=== PATIENT | male | born 1960 | race Caucasian/White ===

== ENCOUNTER → 2018-05-09 | Outpatient (REF) | payer BC ==
[2018-05-09 13:01] LABS: BASO % 0.5 % (0.0-1.0); EOS # 0.1 10^3/uL (0.0-0.50); EOS % 2.2 % (0.0-3.0); IMMATURE GRANULOCYTE % 0.3 % (0-3.0); LYMPH # 1.3 10^3/uL (1.5-4.5); LYMPH % 22.2 % (24.0-44.0); MEAN CORPUSCULAR HEMOGLOBIN 29.6 pg (27.0-33.0); MONO # 0.5 10^3/uL (0.0-0.8); MONO % 8.2 % (0.0-5.0); NEUTROPHILS # 3.9 10^3/uL (1.8-7.7); NEUTROPHILS % 66.6 % (36.0-66.0); PLATELET COUNT, AUTOMATED 189 10^3/uL (150-450); RED CELL DISTRIBUTION WIDTH 12.4 % (11.5-14.5); WHITE BLOOD COUNT 5.8 10^3/uL (4.0-10.0)
[2018-05-09 13:55] LABS: ALBUMIN/GLOBULIN RATIO 1.33 (1.00-1.93); ALKALINE PHOSPHATASE 68 U/L (45-117); ALT/SGPT 49 U/L (12-78); ANION GAP 11 MEQ/L (8-16); AST/SGOT 25 U/L (7-37); BILIRUBIN,TOTAL 0.7 MG/DL (0.2-1.0); BLOOD UREA NITROGEN 16 MG/DL (7-18); CARBON DIOXIDE LEVEL 22 MEQ/L (21-32); CHLORIDE LEVEL 109 MEQ/L (98-107); CHOLESTEROL LEVEL 213 MG/DL (<200); CHOLESTEROL RISK RATIO 3.736 (<5); CREATININE FOR GFR 0.76 MG/DL (0.70-1.30); GLOMERULAR FILTRATION RATE > 60.0 (>49); GLUCOSE, FASTING 89 MG/DL (70-100); HDL CHOLESTEROL 57 MG/DL (>40); LDL CHOLESTEROL 138.8 MG/DL (<100); NON-HDL-C 156 MG/DL; POTASSIUM SERUM 4.3 MEQ/L (3.5-5.1); PSA SCREENING 0.55 NG/ML (< 4.0); SODIUM LEVEL 142 MEQ/L (136-145); TRIGLYCERIDES LEVEL 86 MG/DL (<150)
[2018-05-09 16:19] LABS: ESTIMATED AVERAGE GLUCOSE 103 MG/DL (60-110); HEMOGLOBIN A1c 5.2 %
== END ==
LOC: M SFHCPLAZ 09:11
DX: E78.5 Hyperlipidemia, unspecified (principal); Z12.5 Encounter for screening for malignant neoplasm of prostate
CPT/HCPCS: 84443

== ENCOUNTER → 2019-05-05 | Outpatient (REF) | payer BC ==
[2019-05-05 10:08] LABS: HEMOGLOBIN A1c 5.6 %
[2019-05-05 11:06] LABS: ALBUMIN 3.8 GM/DL (3.2-5.2); ALT/SGPT 40 U/L (12-78); BILIRUBIN,TOTAL 0.4 MG/DL (0.2-1.0); BLOOD UREA NITROGEN 16 MG/DL (7-18); CALCIUM LEVEL 8.8 MG/DL (8.8-10.2); CARBON DIOXIDE LEVEL 27 MEQ/L (21-32); CHLORIDE LEVEL 109 MEQ/L (98-107); CHOLESTEROL LEVEL 214 MG/DL (<200); CHOLESTEROL RISK RATIO 4.196 (<5); CREATININE FOR GFR 0.93 MG/DL (0.70-1.30); GLOMERULAR FILTRATION RATE > 60.0 (>49); GLUCOSE, FASTING 84 MG/DL (70-100); HDL CHOLESTEROL 51 MG/DL (>40); LDL CHOLESTEROL 148 MG/DL (<100); NON-HDL-C 163 MG/DL; POTASSIUM SERUM 4.3 MEQ/L (3.5-5.1); PTH INTACT 42.4 PG/ML (18.5-88.0); SODIUM LEVEL 142 MEQ/L (136-145); TOTAL PROTEIN 6.9 GM/DL (6.4-8.2); TRIGLYCERIDES LEVEL 75 MG/DL (<150)
[2019-05-05 11:53] LABS: TOTAL 25(OH) VITAMIN D 26.8 NG/ML (30.0-100.0)
== END ==
LOC: M SFHCPLAZ 08:16
PROVIDERS: ATTEND Family Medicine
DX: Z12.5 Encounter for screening for malignant neoplasm of prostate (principal); E78.5 Hyperlipidemia, unspecified; E66.3 Overweight; E55.9 Vitamin D deficiency, unspecified
CPT/HCPCS: 36415; 80053; 80061; 82306; 83036; 83970; 86140; G0103

== ENCOUNTER → 2020-05-03 | Outpatient (REF) | payer BC ==
[2020-05-03 10:07] LABS: ALBUMIN 3.9 GM/DL (3.2-5.2); ALT/SGPT 47 U/L (12-78); BILIRUBIN,TOTAL 0.5 MG/DL (0.2-1.0); BLOOD UREA NITROGEN 18 MG/DL (7-18); C REACTIVE PROTEIN QUANTITATIV < 0.30 MG/DL (0.00-0.30); CALCIUM LEVEL 8.7 MG/DL (8.8-10.2); CARBON DIOXIDE LEVEL 27 MEQ/L (21-32); CHLORIDE LEVEL 111 MEQ/L (98-107); CHOLESTEROL LEVEL 235 MG/DL (<200); CHOLESTEROL RISK RATIO 4.196 (<5); CREATININE FOR GFR 0.96 MG/DL (0.70-1.30); GLOMERULAR FILTRATION RATE > 60.0 (>49); GLUCOSE, FASTING 92 MG/DL (70-100); HDL CHOLESTEROL 56 MG/DL (>40); LDL CHOLESTEROL 168 MG/DL (<100); NON-HDL-C 179 MG/DL; POTASSIUM SERUM 4.2 MEQ/L (3.5-5.1); SODIUM LEVEL 144 MEQ/L (136-145); TOTAL PROTEIN 7.1 GM/DL (6.4-8.2); TRIGLYCERIDES LEVEL 56 MG/DL (<150)
[2020-05-03 13:02] LABS: HEMOGLOBIN A1c 5.4 %
== END ==
LOC: M PLALAB 08:00
PROVIDERS: ATTEND Family Medicine
DX: E66.3 Overweight (principal); E78.5 Hyperlipidemia, unspecified; Z12.5 Encounter for screening for malignant neoplasm of prostate
CPT/HCPCS: 36415; 80053; 80061; 83036; 83525; 86140; G0103

== ENCOUNTER → 2020-06-11 | Outpatient (CLI) | payer SELFPAY | LOC: M LABSMTC 09:53 | PROVIDERS: ATTEND Pediatrics | DX: Z20.828 Contact with and (suspected) exposure to other viral communicable diseases (principal); Z11.59 Encounter for screening for other viral diseases ==

== ENCOUNTER 2020-11-13 06:35 | Emergency (ER) | payer BC, SELFPAY ==
[2020-11-13] MEDS ORDERED: ONDANSETRON 4MG/2ML VIAL IV ONE (07:30)
[2020-11-13] MEDS ORDERED: ALBUTEROL 90 MCG/ACT 8GM HFA INHALER INH ONE (07:30)
[2020-11-13] MEDS ORDERED: ACETAMINOPHEN 325 MG TAB PO ONE (07:30)
[2020-11-13] MEDS ORDERED: NS 500 ML IV ONE (07:30)
--- NOTE | 2020-11-13 08:11 | REP ---
INDICATION: Coronavirus workup COMPARISON: None. TECHNIQUE: Portable AP view of the chest FINDINGS: Mediastinum and cardiac silhouette are grossly normal for portable technique. Subtle left basilar infiltrate/atelectasis is suspected. No obvious effusion. No pneumothorax. Skeletal structures intact. IMPRESSION: Subtle left basilar infiltrate suggested. <Electronically signed by Gael Del Rio > 11/13/20 [id number]
[2020-11-13 08:55] LABS: BASO % 0.3 % (0.0-1.0); HEMATOCRIT 45.5 % (42.0-52.0); LYMPH # 0.5 10^3/uL (1.5-5.0); LYMPH % 13.6 % (24.0-44.0); MEAN CORPUSCULAR HEMOGLOBIN 28.4 pg (27.0-33.0); MONO # 0.3 10^3/uL (0.0-0.8); MONO % 8.4 % (0.0-5.0); NEUTROPHILS # 2.6 10^3/uL (1.5-8.5); NEUTROPHILS % 77.4 % (36.0-66.0); RED BLOOD COUNT 5.29 10^6/uL (4.30-6.10); WHITE BLOOD COUNT 3.3 10^3/uL (4.0-10.0)
[2020-11-13 09:17] LABS: PARTIAL THROMBOPLASTIN TIME 30.2 SECONDS (24.2-38.5)
[2020-11-13 09:20] LABS: D-DIMER QUANT 474.08 ng/ml (<500)
[2020-11-13 09:22] LABS: C REACTIVE PROTEIN QUANTITATIV 2.04 MG/DL (0.00-0.30); CK-MB VALUE MASS < 1.0 NG/ML (<3.6); CPK CREATINE PHOSPHOKINASE 75 U/L (39-308); FERRITIN 507 NG/ML (26-388); INR 0.99; LDH LACTATE DEHYDROGENASE 262 U/L (87-241); MAGNESIUM LEVEL 2.1 MG/DL (1.8-2.4); MB/CK RELATIVE INDEX 1.33 (< OR =4); PROTHROMBIN TIME 13.3 SECONDS (12.5-14.3); TROPONIN I < 0.02 NG/ML (< 0.10)
[2020-11-13 09:23] LABS: PLATELET COUNT, AUTOMATED 89 10^3/uL (150-450)
[2020-11-13] MEDS ORDERED: PHEN-815 PO (09:47)
[2020-11-13] MEDS ORDERED: ROSU20TA5 PO (09:47)
[2020-11-13] MEDS ORDERED: ONDA4TAB6 PO (10:40)
[2020-11-13] MEDS ORDERED: DOXY100C37 PO (10:57)
[2020-11-13 11:39] VITALS: BP 122/86
--- NOTE | 2020-11-15 07:27 | ECGEPIP ---
[facility] - ED Test Date: 2020-11-13 Pat Name: LUCIANA KEITH Department: Room: - Gender: Male Fashion Intern: : 1960 Requested By: MONICA TAVERAS PA-C. Order Number: [id number] Reading MD: Linda Dodd Measurements Intervals [place] Rate: 95 P: 12 TN: 194 QRS: -15 QRSD: 93 T: 5 QT: 314 QTc: 395 Interpretive Statements SINUS RHYTHM LOW QRS VOLTAGE IN PRECORDIAL LEADS PATTERN CONSISTENT WITH PULMONARY DISEASE INFERIOR MYOCARDIAL INFARCTION, PROBABLY OLD No prior Electronically Signed on 11-15-2020 7:27:27 EST by Linda Dodd
== END 2020-11-13 11:43 | disposition home or self-care (01) ==
LOC: M ED 06:35
DX: U07.1 COVID-19 (principal); J06.9 Acute upper respiratory infection, unspecified; B34.9 Viral infection, unspecified; R91.8 Other nonspecific abnormal finding of lung field; D69.49 Other primary thrombocytopenia; E78.5 Hyperlipidemia, unspecified; K21.9 Gastro-esophageal reflux disease without esophagitis; Z87.891 Personal history of nicotine dependence; Z79.899 Other long term (current) drug therapy
CPT/HCPCS: 71045; 80047; 82550; 82553; 82728; 83605; 83615; 83735; 84484; 85025; 85049; 85055; 85379; 85384; 85610; 85730; 86140; 87040; 93005; 93041; 94640; 94760; 96361; 96374; 99285; J2405

== ENCOUNTER 2020-11-15 18:42 | Inpatient (IN) | payer BC ==
[~2020-11-15] VITALS: Ht 177.8 cm; Wt 90.9 kg
[~2020-11-15 18:42] MED LIST: DOXY100C37 PO; ONDA4TAB6 PO; PHEN-815 PO; ROSU20TA5 PO
[2020-11-15] MEDS ORDERED: NS 1,000 ML IV ONE (19:15)
[2020-11-15] MEDS ORDERED: ONDANSETRON 4MG/2ML VIAL IV ONE ×2 (19:45→20:00)
[2020-11-15] MEDS: COMBIVENT RESPIMAT 100-20MCG INHALER 4GM INH SCH ×5 (19:45→20:47)
[2020-11-15] MEDS ORDERED: ONDANSETRON 4MG/2ML VIAL As Ordered ONE (19:47)
[2020-11-15 19:53] LABS: VENOUS BASE EXCESS 1.4 (-2.0-2.0); VENOUS HCO3 25.7 MEQ/L (23.0-27.0); VENOUS O2 SATURATION 61.5 % (60.0-80.0); VENOUS PARTIAL PRESSURE CO2 39.8 mmHg (38.0-50.0); VENOUS PH 7.428 UNITS (7.330-7.430); VENOUS STANDARD HCO3 24.7 MEQ/L; VENOUS TOTAL CO2 26.9 MEQ/L (24.0-28.0); VENOUS VENT MODE AIR
[2020-11-15 19:55] LABS: BASO % 0.2 % (0.0-1.0); HEMATOCRIT 46.2 % (42.0-52.0); HEMOGLOBIN 15.2 g/dl (13.5-17.5); LYMPH # 0.5 10^3/uL (1.5-5.0); LYMPH % 10.1 % (24.0-44.0); MEAN CORPUSCULAR HEMOGLOBIN 28.3 pg (27.0-33.0); MEAN CORPUSCULAR HGB CONC 32.9 g/dl (32.0-36.5); MONO # 0.3 10^3/uL (0.0-0.8); MONO % 6.3 % (0.0-5.0); NEUTROPHILS # 3.7 10^3/uL (1.5-8.5); NEUTROPHILS % 82.7 % (36.0-66.0); PLATELET COUNT, AUTOMATED 104 10^3/uL (150-450); RED BLOOD COUNT 5.37 10^6/uL (4.30-6.10); WHITE BLOOD COUNT 4.5 10^3/uL (4.0-10.0)
[2020-11-15 19:56] LABS: INR 0.99; PROTHROMBIN TIME 13.3 SECONDS (12.5-14.3)
[2020-11-15 19:57] LABS: PARTIAL THROMBOPLASTIN TIME 33.2 SECONDS (24.2-38.5)
[2020-11-15 19:59] LABS: D-DIMER QUANT 667.18 ng/ml (<500)
[2020-11-15] MEDS ORDERED: NS 1,000 ML IV SCH (20:00)
[2020-11-15 20:13] LABS: ALBUMIN 3.2 GM/DL (3.2-5.2); ALT/SGPT 46 U/L (12-78); BILIRUBIN,TOTAL 0.7 MG/DL (0.2-1.0); BLOOD UREA NITROGEN 17 MG/DL (7-18); C REACTIVE PROTEIN QUANTITATIV 3.95 MG/DL (0.00-0.30); CALCIUM LEVEL 8.1 MG/DL (8.8-10.2); CARBON DIOXIDE LEVEL 24 MEQ/L (21-32); CHLORIDE LEVEL 103 MEQ/L (98-107); CK-MB VALUE MASS < 1.0 NG/ML (<3.6); CPK CREATINE PHOSPHOKINASE 120 U/L (39-308); CREATININE FOR GFR 0.88 MG/DL (0.70-1.30); FERRITIN 952 NG/ML (26-388); GLOMERULAR FILTRATION RATE > 60.0 (>49); GLUCOSE, FASTING 90 MG/DL (70-100); LDH LACTATE DEHYDROGENASE 387 U/L (87-241); MB/CK RELATIVE INDEX 0.83 (< OR =4); POTASSIUM SERUM 3.5 MEQ/L (3.5-5.1); SODIUM LEVEL 136 MEQ/L (136-145); TROPONIN I < 0.02 NG/ML (< 0.10)
[2020-11-15] MEDS ORDERED: dexameTHASONE 20MG/5ML VIAL (J1100 PER 1MG) As Ordered ONE (20:13)
[2020-11-15] MEDS ORDERED: ISOVUE-370 76% 100ML VIAL As Ordered ONE (20:51)
--- NOTE | 2020-11-15 20:51 | REPVR ---
PROCEDURE INFORMATION: Exam: XR Chest, 1 View Exam date and time: 11/15/2020 7:20 PM Age: 60 years old Clinical indication: Device placement; Other: Sepsis; Additional info: Sepsis/shock TECHNIQUE: Imaging protocol: XR of the chest Views: 1 view. COMPARISON: CR PORTABLE CHEST X-RAY 11/13/2020 7:38 AM FINDINGS: Lungs: Slightly increased bibasilar infiltrate or atelectasis since the prior study. Pleural space: Question of minimal left pleural effusion. Heart/Mediastinum: Unremarkable. No cardiomegaly. Bones/joints: Unremarkable. Soft tissues: There are moderately generous overlying soft tissues. Other findings: Decreased inflation since the prior study. IMPRESSION: 1. Slightly increased bibasilar infiltrates or atelectasis since 11/13/2020. 2. Question of minimal left pleural effusion which may have been present on the prior study. Electronically signed by: Madhav Jim On 11/15/2020 20:51:04 PM
[2020-11-15] MEDS ORDERED: cefTRIAXone SOD 2 GM in D5W MINI-BAG PLUS 50 ML IV ONE (21:30)
[2020-11-15] MEDS ORDERED: ACETAMINOPHEN 500 MG TAB PO ONE (21:30)
--- NOTE | 2020-11-15 21:32 | REPVR ---
PROCEDURE INFORMATION: Exam: CT Angiography Chest With Contrast Exam date and time: 11/15/2020 9:05 PM Age: 60 years old Clinical indication: Shortness of breath; Additional info: Sob/covid/ R/O pe TECHNIQUE: Imaging protocol: Computed tomographic angiography of the chest with intravenous contrast. 3D rendering (Not supervised by radiologist): MIP and/or 3D reconstructed images were created by the technologist. Radiation optimization: All CT scans at this facility use at least one of these dose optimization techniques: automated exposure control; mA and/or kV adjustment per patient size (includes targeted exams where dose is matched to clinical indication); or iterative reconstruction. Contrast material: ISOVUE 370; Contrast volume: 75 ml; Contrast route: INTRAVENOUS (IV); COMPARISON: CR PORTABLE CHEST X-RAY 11/15/2020 8:00 PM FINDINGS: Pulmonary arteries: The main pulmonary artery measures 28 mm. No pulmonary embolism is identified. Aorta: The ascending thoracic aorta measures 29 mm. Veins: The liver attenuation is 39 Hounsfield units and the spleen is 98 Hounsfield units as acquired and early portal venous phase. Lungs: Mild scattered bilateral ground-glass pulmonary infiltrates with minimal fibro-atelectatic change, greatest in the bases. Pleural space: Unremarkable. No pneumothorax. No pleural effusion. Heart: Unremarkable. No cardiomegaly. No pericardial effusion. Lymph nodes: Unremarkable. No enlarged lymph nodes. Pancreas: Lobular low-attenuation area in the pancreatic neck measuring approximately 19 x 20 x 14 mm which may reflect a collection of cysts or complex cyst although a poorly enhancing solid nodule is not excluded. Bones/joints: Unremarkable. No acute fracture. Soft tissues: Unremarkable. IMPRESSION: 1. Mild scattered bilateral ground-glass pulmonary infiltrates with minimal fibro-atelectatic change which is greatest in the bases consistent with pneumonia. 2. Probable fatty infiltration of the liver. 3. Lobular low-attenuation area in the pancreatic neck which may reflect a complex cyst or collection of cysts although a poorly enhancing pancreatic solid nodule is not excluded measuring 19 x 20 x 14 mm. 4. Otherwise negative CTA chest. No pulmonary embolism is identified. Electronically signed by: Madhav Jim On 11/15/2020 21:32:17 PM
[2020-11-15] MEDS ORDERED: DOXY100C37 PO (21:57)
[2020-11-15] MEDS ORDERED: ONDA4TAB6 PO (21:59)
[2020-11-15] MEDS ORDERED: NS 1,710 ML in IV 1 EA IV ONE (22:00)
[2020-11-15] MEDS ORDERED: ACET-683 PO (22:06)
[2020-11-15] MEDS ORDERED: MAALOX 30 ML SUSP *UDC PO PRN (22:45)
[2020-11-15] MEDS ORDERED: MOM 30ML SUSPENSION UDC PO PRN (22:45)
[2020-11-15] MEDS ORDERED: ACETAMINOPHEN TAB 650MG DOSE (2X325MG) PO PRN (22:45)
[2020-11-15] MEDS: AZITHROMYCIN INJ 500 MG, VIAL MATE ADAPTER 1 EACH in D5W 250 ML IV SCH (23:16)
--- NOTE | 2020-11-15 23:39 | HPEPDOC ---
[facility] Medical History & Physical Date of Admission Nov 15, 2020 Date of Service: Nov 15, 2020 Primary Care Physician: Satya Arce M.D. Attending Physician: MIMI SNYDER MD History and Physical TIME OF SERVICE: 1100pm CHIEF COMPLAINT: URI symptoms HISTORY OF PRESENT ILLNESS: This 60 yr old M was diagnosed with COVID 19 and LLL PNA on Nov 05 and started on doxycycline. Today he reports feeling more ill and is c/o of fever (100F), chills, and dyspnea. He denies having abdominal pain, voming or diarrhea today. A few days ago he felt nauseous. REVIEW OF SYSTEMS: see HPI PAST MEDICAL/ SURGICAL HISTORY: NAFLD DLP Chronic back pain SOCIAL HISTORY: Former smoker FAMILY HISTORY: n/a ALLERGIES: Please see below. HOME MEDICATIONS: Please see below. PHYSICAL EXAMINATION: Vital Signs Date Time Temp Pulse Resp B/P (MAP) Pulse Ox O2 Delivery O2 Flow Rate FiO2 11/15/20 18:43 98.3 106 24 148/72 (97) 96 Room Air GENERAL APPEARANCE: appears toxic HEENT: EOMI CARDIOVASCULAR: tachycardic / NMRG / no LE edema LUNGS: tachypneic / coughing / lungs are CTAB MUSCULOSKELETAL:NCAT / GIDEON x 4 INTEGUMENT: NEUROLOGICAL:CN 2-12 intact / speech not dysarthric PSYCHIATRIC: A&Ox 3 / able to understand and follow all commands LABORATORY DATA: 11/15/20 19:21 11/15/20 19:21: Immature Granulocyte % (Auto) 0.7, Neutrophils (%) (Auto) 82.7H, Lymphocytes (%) (Auto) 10.1L, Monocytes (%) (Auto) 6.3H, Eosinophils (%) (Auto) 0.0, Basophils (%) (Auto) 0.2, Neutrophils # (Auto) 3.7, Lymphocytes # (Auto) 0.5L, Monocytes # (Auto) 0.3, Eosinophils # (Auto) 0.0, Basophils # (Auto) 0.0, Nucleated Red Blood Cells % (auto) 0.0, Prothrombin Time 13.3, Prothromb Time International Ratio 0.99, Activated Partial Thromboplast Time 33.2, D-Dimer, Quantitative 667.18H, Blood Gas Bicarbonate Standard 24.7, Venous Blood pH 7.428, Venous Blood Partial Pressure CO2 39.8, Venous Blood Partial Pressure O2 30.0, Venous Blood Total Carbon Dioxide 26.9, Venous Blood HCO3 25.7, Venous Blood Oxygen Saturation 61.5, Venous Blood Base Excess 1.4, Blood Gas Vent Mode AIR, Anion Gap 9, Glomerular Filtration Rate > 60.0, Lactic Acid Level 1.1, Calcium Level 8.1L, Ferritin 952H, Total Bilirubin 0.7, Aspartate Amino Transf (AST/SGOT) 50H, Alanine Aminotransferase (ALT/SGPT) 46, Alkaline Phosphatase 86, Lactate Dehydrogenase 387H, Total Creatine Kinase 120, Creatine Kinase MB < 1.0, Creatine Kinase MB Relative Index 0.83, Troponin I < 0.02, C-Reactive Protein, Quantitative 3.95H, Total Protein 7.0, Albumin 3.2, Albumin/Globulin Ratio 0.8 IMAGING: CTA chest IMPRESSION: 1. Mild scattered bilateral ground-glass pulmonary inf iltrates with minimal fibro-atelectatic change which is greatest in the bases consistent with pneumonia. 2. Probable fatty infiltration of the liver. 3. Lobular low-attenuation area in the pancreatic neck which may reflect a complex cyst or collection of cysts although a poorly enhancing pancreatic solid nodule is not excluded measuring 19 x 20 x 14 mm. 4. Otherwise negative CTA chest. No pulmonary embolism is identified. MICROBIOLOGY: Blood cx pending ASSESSMENT: is a 60 yr old w a hx of NAFLD, DLP and chronic back pain who was diagnosed with COVID 10 days ago and presented w c/o worsening, fevers and chills; he will be admitted for management of Sepsis 2/2 COVID 10 PNA. PLAN: 1. Sepsis SIRS criteria: Temp =101 / HR = 117 / RR= 26 Lactic acid <2 NEW2S Score = 6 points = medium risk Plan: admit to PCU / telemetry / abx to cover PNA / IVF /f/u blood cx, sputum culture / Acetaminophen PRN for fever / target MAP at of least 65 to 70 / f/u Is and Os with target UOP of at least 0.5 ml/kg/H / f/u FSBS w target serum glucose 140-180 while acutely ill 2. Post Viral Pneumonia ABG doesnt show hypoxemia PORT/PSI Score to predict risk of mortality in patient w CAP = 82 points = class 3 risk = 0.9 to 2.8% mortality Plan: continuous pulse ox & supplemental O2/ f/u sputum & blood culture, strep pneumo, mycoplasma and legionella / ceftriaxone, azithromycin and Vancomycin p ending MRSA results / IVF / Tessalon pearls / Acetaminophen PRN for fever 3. COVID-19 He has mostly URI symptoms The thrombocytopenia is likely 2/2 COVID Plan: continuous pulse ox / supplemental O2/ contact & air borne precautions / in 12 H f/u repeat plts (if low indicates bad prognosis), CRP (if high indicates bad prognosis), troponins (if elevated will need an echo to r/o cardiomyopathy), INR, BMP, fibrinogen, INR, D-dimer, PT, PTT (if patient has DIC indicates bad prognosis), ferritin, LDH, procalcitonin (if low will help us descalate abx), troponins / his D-dimer is <4000 therefore will order regular DVT dose of lovenox along with ASA,/ he is not hypoxemic therefore he is not a candidate for Remdesivir or steroids 4. Pancreatic Cyst He also had nausea a few days ago but denies having abdominal pain or pancreatitis in the past. There are case reports of COVID 19 presenting with pancreatitis, but I am not sure if the pancreatic cyst is related to COVID Plan: Since the cyst is >1.5cm in size will order MRCP to r/o malignancy 5. DLP Plan: rosuvastatin DVT Px Lovenox w ASA Dispo: home after more than 2 days Home Medications Scheduled Doxycycline Monohydrate (Doxycycline Monohydrate) 100 Mg Capsule, 100 MG PO Q12H started 11/13/20 x 7 days Rosuvastatin Calcium (Rosuvastatin Calcium) 20 Mg Tablet, 20 MG PO DAILY HAS NOT STARTED MEDICATION YET. Scheduled PRN Acetaminophen (Acetaminophen) 500 Mg Tablet, 1,000 MG PO Q6H PRN for PAIN / FEVER Ondansetron (Ondansetron Odt) 4 Mg Tab.rapdis, 4 MG PO Q6-8HP PRN for NAUSEA OR VOMITING Phenylephrine/Dm/Acetaminop/GG (Tylenol Cold-Flu Severe [place]) 1 Each Tablet, 2 EACH PO Q4H PRN for FEVER AND CONGESTION Allergies Coded Allergies: No Known Allergies (Unverified , 11/13/20) A-FIB/CHADSVASC A-FIB History Current/History of A-Fib/PAF?: No Current PO Anticoag Therapy: No LWANGA,MIMI MD Nov 15, 2020 23:38
[2020-11-15 23:52] LABS: TRIGLYCERIDES LEVEL 119 MG/DL (<150)
[2020-11-16 00:46] VITALS: BP 127/64
[2020-11-16] MEDS ORDERED: BENZONATATE 100 MG CAP PO ONE (03:30)
[2020-11-16 04:00] VITALS: BP 108/61
[2020-11-16 08:00] VITALS: BP 106/61
[2020-11-16] MEDS: ASPIRIN 81 MG ENTERIC TAB PO SCH (08:19)
[2020-11-16] MEDS: ENOXAPARIN 40MG/0.4ML SYRINGE (J1650 PER 10MG) SC SCH ×2 (08:20→10:30)
[2020-11-16] MEDS: ROSUVASTATIN 10 MG TAB (CRESTOR) PO SCH (08:20)
[2020-11-16] MEDS ORDERED: guaiFENesin DM LIQ 10ML UD PO PRN (08:45)
--- NOTE | 2020-11-16 08:49 | IPNPDOC ---
Date Seen The patient was seen on 11/16/20. Progress Note SUBJECTIVE: Patient was seen and examined at the bedside chart has been reviewed. He complains of cough productive of white sputum and complains of drenching night sweats, dysgeusia and anosmia .No complaints of chest pain, pressure, nausea or vomiting. He does admit to dyspnea and exertion and has been noted to decrease to 92-93% on room air with exertion. Despite thrombocytopenia with platelets between 80,000 -100,000, patient denies any active bleeding such as gingival bleeding, bright red blood per rectum, melena, black tarry stools or coffee- ground emesis. OBJECTIVE PHYSICAL EXAMINATION: VITAL SIGNS: Please see below. GENERAL: No use of respiratory muscles. No pallor, no icterus, no jaundice HEENT: No JVD, thyromegaly. Moist mucous membranes. No tracheal deviation No carotid bruit. No stridor CARDIOVASCULAR: S1, S2, sinus rhythm RESPIRATORY: Diminished breath sounds with bilateral fine crepitations. No rales, no wheezing. , Air entry is equal bilaterally. No use of respiratory accessory muscles . No conversational dyspnea ABDOMINAL: Positive bowel sounds, soft, nontender, nondistended. No hepatosplenomegaly. No abdominal bruit. No CVA tenderness EXTREMITIES: No pitting edema bilateral lower extremities. Skin warm, dry, well perfused [place] in color LABORATORY DATA, IMAGING STUDIES, MICROBIOLOGY: Please see below. ASSESSMENT AND PLAN: Covid 19 positive -Patient has oxygen saturation of 92-93% on room air at rest and with ambulation -He will be started on Remdesevir for 5 days. , IV steroids -Keep oxygen saturation above 94% -Keep on contact and droplet isolation -On aspirin and Lovenox due to hypercoagulable state seen and Covid infection Bilateral bacterial pneumonia -Continue on IV ceftriaxone and azithromycin -Check sputum culture -Robitussin 10 ML by mouth every 4 as needed for cough -Keep oxygen saturation above 94% -Give supplemental oxygen if O2 sats ration is less than 94% -Continue droplet isolation precautions Thrombocytopenia -Due to Covid 19 -Continue on Lovenox injection. Despite platelets of 100,000 Due to increased risk of hypercoagulable state, DVT, PE -If patient's thrombocytopenia decreases by 50% from baseline of 80,000, , We will need to reconsider stopping anticoagulation -Hold Lovenox if patient have any signs of active bleeding, Or platelet count less than 10,000 due to risk of spontaneous bleeding VS, I&O, 24H, [place] Vital Signs/I&O Vital Signs Date Time Temp Pulse Resp B/P (MAP) Pulse Ox O2 Delivery O2 Flow Rate FiO2 11/16/20 08:00 97.9 78 18 106/61 (76) 93 Room Air I&O- Last 24 Hours up to 6 AM 11/16/20 06:00 Intake Total 3295 ml Output Total 775 ml Balance 2520 ml Laboratory Data 24H LABS Laboratory Tests 2 11/15/20 19:19: 11/15/20 19:21: Immature Granulocyte % (Auto) 0.7, Neutrophils (%) (Auto) 82.7H, Lymphocytes (%) (Auto) 10.1L, Monocytes (%) (Auto) 6.3H, Eosinophils (%) (Auto) 0.0, Basophils (%) (Auto) 0.2, Neutrophils # (Auto) 3.7, Lymphocytes # (Auto) 0.5L, Monocytes # (Auto) 0.3, Eosinophils # (Auto) 0.0, Basophils # (Auto) 0.0, Nucleated Red Blood Cells % (auto) 0.0, Prothrombin Time 13.3, Prothromb Time International Ratio 0.99, Activated Partial Thromboplast Time 33.2, D-Dimer, Quantitative 667.18H, Blood Gas Bicarbonate Standard 24.7, Venous Blood pH 7.428, Venous Blood Partial Pressure CO2 39.8, Venous Blood Partial Pressure O2 30.0, Venous Blood Total Carbon Dioxide 26.9, Venous Blood HCO3 25.7, Venous Blood Oxygen Saturation 61.5, Venous Blood Base Excess 1.4, Blood Gas Vent Mode AIR, Anion Gap 9, Glomerular Filtration Rate > 60.0, Lactic Acid Level 1.1, Calcium Level 8.1L, Ferritin 952H, Total Bilirubin 0.7, Aspartate Amino Transf (AST/SGOT) 50H, Alanine Aminotransferase (ALT/SGPT) 46, Alkaline Phosphatase 86, Lactate Dehydrogenase 387H, Total Creatine Kinase 120, Creatine Kinase MB < 1.0, Creati ne Kinase MB Relative Index 0.83, Troponin I < 0.02, C-Reactive Protein, Quantitative 3.95H, Total Protein 7.0, Albumin 3.2, Albumin/Globulin Ratio 0.8, Triglycerides Level 119 12/26/20 06:38: Bedside Glucose (Misc Panel) 116H CBC/BMP Laboratory Tests 11/15/20 19:21 Microbiology Microbiology 11/15/20 Blood Culture, Received Pending 11/15/20 Blood Culture, Received Pending THEODORA HERMOSILLO MD Nov 16, 2020 08:49
[2020-11-16 11:12] LABS: HEMATOCRIT 39.2 % (42.0-52.0); LYMPH # 0.3 10^3/uL (1.5-5.0); MEAN CORPUSCULAR HEMOGLOBIN 28.2 pg (27.0-33.0); MEAN CORPUSCULAR HGB CONC 32.9 g/dl (32.0-36.5); MEAN CORPUSCULAR VOLUME 85.8 fl (80.0-96.0); MONO # 0.2 10^3/uL (0.0-0.8); MONO % 4.7 % (0.0-5.0); NEUTROPHILS # 3.1 10^3/uL (1.5-8.5); PLATELET COUNT, AUTOMATED 113 10^3/uL (150-450); RED BLOOD COUNT 4.57 10^6/uL (4.30-6.10); WHITE BLOOD COUNT 3.7 10^3/uL (4.0-10.0)
[2020-11-16 11:27] LABS: HEMOGLOBIN 12.9 g/dl (13.5-17.5)
[2020-11-16 11:31] LABS: INR 0.95; PROTHROMBIN TIME 12.9 SECONDS (12.5-14.3)
[2020-11-16 11:32] LABS: PARTIAL THROMBOPLASTIN TIME 30.1 SECONDS (24.2-38.5)
[2020-11-16 11:35] LABS: D-DIMER QUANT 702.04 ng/ml (<500)
[2020-11-16 11:41] LABS: C REACTIVE PROTEIN QUANTITATIV 3.47 MG/DL (0.00-0.30); FERRITIN 917 NG/ML (26-388); LDH LACTATE DEHYDROGENASE 319 U/L (87-241); NT-PRO BNP 504 PG/ML (<125); TRIGLYCERIDES LEVEL 103 MG/DL (<150); TROPONIN I < 0.02 NG/ML (< 0.10)
[2020-11-16 12:00] VITALS: BP 127/69
[2020-11-16] MEDS ORDERED: SODIUM CHLORIDE 0.9% INJ 10 ML SYR IV ONE (12:00)
[2020-11-16] MEDS: BENZONATATE 100 MG CAP PO SCH ×2 (13:19→21:52)
[2020-11-16 16:00] VITALS: BP 126/71
--- NOTE | 2020-11-16 18:16 | ECGEPIP ---
[facility] - ED Test Date: 2020-11-15 Pat Name: LUCIANA KEITH Department: Room: [place] [address] Gender: Male Contact Center Assistant: : 1960 Requested By: SATINDER Maher Order Number: [id number] Reading MD: Linda Dodd Measurements Intervals [place] Rate: 104 P: 33 CA: 175 QRS: -14 QRSD: 96 T: 7 QT: 319 QTc: 420 Interpretive Statements SINUS TACHYCARDIA POSSIBLE ANTERIOR MYOCARDIAL INFARCTION, OF INDETERMINATE AGE INFERIOR MYOCARDIAL INFARCTION, PROBABLY OLD SIMILAR 11/13/20 Electronically Signed on 11-16-2020 18:15:28 EST by Linda Dodd
[2020-11-16 20:35] VITALS: BP 123/62
[2020-11-16] MEDS: cefTRIAXone SOD 1 GM in D5W MINI-BAG PLUS 50 ML IV SCH (21:52)
[2020-11-17] VITALS: BP 122/65
[2020-11-17] MEDS: AZITHROMYCIN INJ 500 MG, VIAL MATE ADAPTER 1 EACH in D5W 250 ML IV SCH ×2 (00:12→21:52)
[2020-11-17 04:00] VITALS: BP 127/67
[2020-11-17] MEDS: BENZONATATE 100 MG CAP PO SCH ×3 (05:02→21:01)
[2020-11-17 08:00] VITALS: BP 120/68
[2020-11-17] MEDS: ROSUVASTATIN 10 MG TAB (CRESTOR) PO SCH (09:00)
--- NOTE | 2020-11-17 09:16 | IPNPDOC ---
Date Seen The patient was seen on 11/17/20. Progress Note SUBJECTIVE: Patient complained of worsening shortness breath yesterday required oxygen for about 2 hours He continues to have productive cough of white thick sputum, without any fever or chills Patient complained of insomnia, difficult to sleep last night. He denies any chest pain, pressure, tightness, lightheadedness today No complains of gingival bleeding, bright red blood per rectum, melena, black tarry stools or coffee-ground emesis. Still complains of dysgeusia anosmia, decreased appetite and generalized weakness No night sweats last night OBJECTIVE PHYSICAL EXAMINATION: VITAL SIGNS: Please see below. GENERAL: No respiratory distress, speaks in full sentences. No nasal flaring HEENT: No JVD, thyromegaly. Moist mucous membranes. No tracheal deviation No carotid bruit. No stridor. No use of respiratory accessory muscle use. No abdominal retractions CARDIOVASCULAR: S1, S2, sinus rhythm RESPIRATORY: Diminished breath sounds with bilateral bibasilar crackles No rales, no wheezing. , Air entry is equal bilaterally. No use of respiratory accessory muscles . No conversational dyspnea ABDOMINAL: Positive bowel sounds, soft, nontender, nondistended. No hepatosplenomegaly. No abdominal bruit. No CVA tenderness EXTREMITIES: No pitting edema bilateral lower extremities. Skin warm, dry, well perfused [place] in color LABORATORY DATA, IMAGING STUDIES, MICROBIOLOGY: Please see below. ASSESSMENT AND PLAN: Covid 19 positive -Patient has oxygen saturation of 92-93% on room air at rest and with ambulation -on Remdesevir for 5 days, IV steroids -Supportive care with supplemental oxygen if needed -Keep oxygen saturation above 94% -Keep on contact and droplet isolation -On aspirin and Lovenox due to hypercoagulable state seen and Covid infection -Inflammatory markers are decreasing. -Continue to monitor CRP, sedimentation rate, d-dimer, fibrinogen, ferritin , LDH, liver function tests and cardiac markers, CBC with differential Bilateral bacterial pneumonia -Continue on IV ceftriaxone and azithromycin -Checked sputum culture -Robitussin 10 ML by mouth every 4 as needed for cough -Keep oxygen saturation above 94% -Give supplemental oxygen if O2 sats ration is less than 94% -Continue droplet isolation precautions -Blood cultures are negative from admission -Check urine Legionella antigen -Check urine streptococcal antigen Pancytopenia -Due to Covid 19 -Continue on Lovenox injection. Due to increased risk of hypercoagulable state, DVT, PE -If patient's thrombocytopenia decreases by 50% from baseline of 80,000, , We will need to reconsider stopping anticoagulation -Hold Lovenox if patient have any signs of active bleeding, Or platelet count less than 10,000 due to risk of spontaneous bleeding VS, I&O, 24H, Fishbone Vital Signs/I&O Vital Signs Date Time Temp Pulse Resp B/P (MAP) Pulse Ox O2 Delivery O2 Flow Rate FiO2 11/17/20 04:50 95 Room Air 11/17/20 04:00 99.7 76 18 127/67 (87) 2.0 I&O- Last 24 Hours up to 6 AM 11/17/20 06:00 Intake Total 1155 ml Output Total 1200 ml Balance -45 ml Laboratory Data 24H LABS Laboratory Tests 2 11/16/20 10:53: Immature Granulocyte % (Auto) 0.3, Neutrophils (%) (Auto) 86.0H, Lymphocytes (%) (Auto) 9.0L, Monocytes (%) (Auto) 4.7, Eosinophils (%) (Auto) 0.0, Basophils (%) (Auto) 0.0, Neutrophils # (Auto) 3.1, Lymphocytes # (Auto) 0.3L, Monocytes # (Auto) 0.2, Eosinophils # (Auto) 0.0, Basophils # (Auto) 0.0, Nucleated Red Blood Cells % (auto) 0.0, Prothrombin Time 12.9, Prothromb Time International Ratio 0.95, Activated Partial Thromboplast Time 30.1, Fibrinogen 387, D-Dimer, Quantitative 702.04H, Ferritin 917H, Lactate Dehydrogenase 319H, Troponin I < 0.02, C-Reactive Protein, Quantitative 3.47H, FA-Uoj-O-Type Natriuretic Peptide 504H, Triglycerides Level 103 11/16/20 12:31: Bedside Glucose (Misc Panel) 107 11/16/20 17:26: Bedside Glucose (Misc Panel) 101 11/16/20 23:18: Bedside Glucose (Misc Panel) 99 CBC/BMP Laboratory Tests 11/16/20 10:53 Microbiology Microbiology 11/15/20 Blood Culture - Preliminary, Resulted No growth after 24 hours . All specim... 11/15/20 Blood Culture - Preliminary, Resulted No growth after 24 hours . All specim... THEODORA HERMOSILLO MD Nov 17, 2020 09:11
[2020-11-17 09:21] LABS: BASO % 0.1 % (0.0-1.0); HEMATOCRIT 40.1 % (42.0-52.0); HEMOGLOBIN 13.2 g/dl (13.5-17.5); LYMPH # 0.7 10^3/uL (1.5-5.0); LYMPH % 9.3 % (24.0-44.0); MEAN CORPUSCULAR HEMOGLOBIN 28.6 pg (27.0-33.0); MEAN CORPUSCULAR HGB CONC 32.9 g/dl (32.0-36.5); MONO # 0.3 10^3/uL (0.0-0.8); MONO % 3.7 % (0.0-5.0); NEUTROPHILS # 6.8 10^3/uL (1.5-8.5); NEUTROPHILS % 86.3 % (36.0-66.0); PLATELET COUNT, AUTOMATED 144 10^3/uL (150-450); RED BLOOD COUNT 4.61 10^6/uL (4.30-6.10); WHITE BLOOD COUNT 7.9 10^3/uL (4.0-10.0)
[2020-11-17 09:42] LABS: ERYTHROCYTE SEDIMENTATION RATE 13 mm/hr (0-20)
[2020-11-17 09:49] LABS: ALBUMIN 2.6 GM/DL (3.2-5.2); ALT/SGPT 83 U/L (12-78); BILIRUBIN,TOTAL 0.4 MG/DL (0.2-1.0); BLOOD UREA NITROGEN 22 MG/DL (7-18); C REACTIVE PROTEIN QUANTITATIV 1.97 MG/DL (0.00-0.30); CALCIUM LEVEL 7.6 MG/DL (8.8-10.2); CARBON DIOXIDE LEVEL 21 MEQ/L (21-32); CHLORIDE LEVEL 111 MEQ/L (98-107); CK-MB VALUE MASS 1.9 NG/ML (<3.6); CPK CREATINE PHOSPHOKINASE 260 U/L (39-308); CREATININE FOR GFR 0.84 MG/DL (0.70-1.30); FERRITIN 1067 NG/ML (26-388); GLOMERULAR FILTRATION RATE > 60.0 (>49); GLUCOSE, FASTING 123 MG/DL (70-100); LDH LACTATE DEHYDROGENASE 384 U/L (87-241); MB/CK RELATIVE INDEX 0.73 (< OR =4); POTASSIUM SERUM 3.8 MEQ/L (3.5-5.1); SODIUM LEVEL 142 MEQ/L (136-145); TOTAL PROTEIN 5.5 GM/DL (6.4-8.2); TROPONIN I 0.02 NG/ML (< 0.10)
[2020-11-17] MEDS: ENOXAPARIN 40MG/0.4ML SYRINGE (J1650 PER 10MG) SC SCH (09:53)
[2020-11-17] MEDS: dexameTHASONE 4 MG/ML 1ML VIAL (J1100 PER 1MG) IV SCH (09:53)
[2020-11-17] MEDS: ASPIRIN 81 MG ENTERIC TAB PO SCH (09:53)
[2020-11-17] MEDS: SODIUM CHLORIDE 0.9% INJ 10 ML SYR IV SCH (11:15)
[2020-11-17 12:00] VITALS: BP 119/58
[2020-11-17 16:00] VITALS: BP 134/65
[2020-11-17 20:00] VITALS: BP 141/80
[2020-11-17] MEDS: cefTRIAXone SOD 1 GM in D5W MINI-BAG PLUS 50 ML IV SCH (21:01)
[2020-11-18] VITALS: BP 131/65
[2020-11-18 04:00] VITALS: BP 137/78
[2020-11-18] MEDS: BENZONATATE 100 MG CAP PO SCH (05:31)
[2020-11-18 07:58] LABS: HEMATOCRIT 41.1 % (42.0-52.0); LYMPH # 0.6 10^3/uL (1.5-5.0); LYMPH % 10.3 % (24.0-44.0); MEAN CORPUSCULAR HEMOGLOBIN 29.4 pg (27.0-33.0); MEAN CORPUSCULAR HGB CONC 34.1 g/dl (32.0-36.5); MEAN CORPUSCULAR VOLUME 86.3 fl (80.0-96.0); MONO # 0.6 10^3/uL (0.0-0.8); MONO % 10.1 % (0.0-5.0); NEUTROPHILS # 4.8 10^3/uL (1.5-8.5); NEUTROPHILS % 79.1 % (36.0-66.0); PLATELET COUNT, AUTOMATED 158 10^3/uL (150-450); RED BLOOD COUNT 4.76 10^6/uL (4.30-6.10)
[2020-11-18 08:00] VITALS: BP 153/90
[2020-11-18 08:05] LABS: INR 0.98; PROTHROMBIN TIME 13.2 SECONDS (12.5-14.3)
[2020-11-18 08:06] LABS: PARTIAL THROMBOPLASTIN TIME 27.6 SECONDS (24.2-38.5)
[2020-11-18 08:09] LABS: D-DIMER QUANT 770.54 ng/ml (<500)
[2020-11-18 08:15] LABS: ALBUMIN 2.6 GM/DL (3.2-5.2); ALT/SGPT 80 U/L (12-78); BILIRUBIN,TOTAL 0.5 MG/DL (0.2-1.0); BLOOD UREA NITROGEN 21 MG/DL (7-18); CALCIUM LEVEL 7.5 MG/DL (8.8-10.2); CARBON DIOXIDE LEVEL 24 MEQ/L (21-32); CHLORIDE LEVEL 110 MEQ/L (98-107); CK-MB VALUE MASS 1.3 NG/ML (<3.6); CPK CREATINE PHOSPHOKINASE 181 U/L (39-308); CREATININE FOR GFR 0.66 MG/DL (0.70-1.30); FERRITIN 800 NG/ML (26-388); GLOMERULAR FILTRATION RATE > 60.0 (>49); GLUCOSE, FASTING 96 MG/DL (70-100); LDH LACTATE DEHYDROGENASE 379 U/L (87-241); MB/CK RELATIVE INDEX 0.72 (< OR =4); POTASSIUM SERUM 3.9 MEQ/L (3.5-5.1); SODIUM LEVEL 142 MEQ/L (136-145); TOTAL PROTEIN 5.4 GM/DL (6.4-8.2); TROPONIN I 0.02 NG/ML (< 0.10)
[2020-11-18 08:20] LABS: ERYTHROCYTE SEDIMENTATION RATE 13 mm/hr (0-20)
[2020-11-18] MEDS: ASPIRIN 81 MG ENTERIC TAB PO SCH (08:21)
[2020-11-18] MEDS: ENOXAPARIN 40MG/0.4ML SYRINGE (J1650 PER 10MG) SC SCH (08:21)
[2020-11-18] MEDS: ROSUVASTATIN 10 MG TAB (CRESTOR) PO SCH (08:22)
[2020-11-18] MEDS: dexameTHASONE 4 MG/ML 1ML VIAL (J1100 PER 1MG) IV SCH (08:22)
[2020-11-18 10:52] LABS: HEPATITIS B SURFACE ANTIGEN NEGATIVE (NEGATIVE); HIV 1&2 SCREEN CENTAUR NEGATIVE (NEGATIVE)
[2020-11-18] MEDS ORDERED: AUGM875T28 PO (12:17)
[2020-11-18] MEDS ORDERED: DEXA2TA PO (12:17)
[2020-11-18] MEDS: SODIUM CHLORIDE 0.9% INJ 10 ML SYR IV SCH (12:30)
--- NOTE | 2020-11-18 20:06 | DS.PDOC ---
Discharge Summary General Date of Admission Nov 15, 2020 at 22:35 Date of Discharge Wednesday, November 18, 2020 Attending Physician: EDA MACEDO MD Discharge Summary PROCEDURES PERFORMED DURING STAY: [None]. ADMITTING DIAGNOSES: Covid 19 Sepsis secondary to Postviral bacterial pneumonia Thrombocytopenia Dyslipidemia DISCHARGE DIAGNOSES: Sepsis secondary to postviral bacterial pneumonia, resolved. Covid 19 Thrombocytopenia, resolved Dyslipidemia COMPLICATIONS/CHIEF COMPLAINT: Covid19, Pneumonia, Sepsis, Thrombocytopenia. HISTORY OF PRESENT ILLNESS: Gael is a 60yo male w/ notable PMHx of nonalcoholic fatty liver disease, dyslipidemia, and positive Covid 19 test on 11/05 with resulting left lower lobe pneumonia (started on doxycycline), who presented to the emergency department initially on 11/13 with nausea and malaise and was subsequently discharged from the ED. He reported to the ED again on 11/15 complaining of continued malaise, as well as fever, chills, and shortness of breath. Imaging in the ED showed some progression of bilateral opacities consistent with pneumonia and with the presenting temperature of 101, leukopenia, and tachypnea. He was admitted for monitoring and surveillance of respiratory status with post COVID superimposed bacterial pneumonia. HOSPITAL COURSE: Upon admission, he was started on IV dexamethasone and remdesivir along with IV ceftriaxone and azithromycin for superimposed bilateral bacterial pneumonia. At one point during his stay, he was briefly placed on 1 L nasal cannula, but this did not seem to alter his oxygen saturations, which consistently were in the low to mid 90% throughout his inpatient stay. His also was started on Lovenox and aspirin due to the hypercoaguable state associated with a Covid infection. His white count and platelet count steadily marvin during his stay and were resolved to normal range by the time of discharge. On day of discharge, 11/18, he was saturating well on room air and had no complaints. Upon discharge home, he was prescribed 4 days of dexamethasone 2 mg orally, as well as 4 days of 875 mg, Augmentin twice a day for continued anti-inflammatory and bacterial pneumonia treatment, respectively. DISCHARGE MEDICATIONS: Please see below. ALLERGIES: Please see below. PHYSICAL EXAMINATION ON DISCHARGE: VITAL SIGNS: Please see below. GENERAL: Pleasant male. Not in respiratory status distress, breathing room air. Alert and oriented 3. HEENT: No JVD, thyromegaly. Moist mucous membranes. No tracheal deviation No carotid bruit. No stridor. No use of respiratory accessory muscle use. No abdominal retractions CARDIOVASCULAR: S1, S2, sinus rhythm RESPIRATORY: Diminished breath sounds with bilateral bibasilar crackles No rales, no wheezing. Air entry is equal bilaterally. No use of respiratory accessory muscles. No conversational dyspnea ABDOMINAL: Positive bowel sounds, soft, nontender, nondistended. No hepatosplenomegaly. No abdominal bruit. No CVA tenderness EXTREMITIES: No pitting edema bilateral lower extremities. Skin warm, dry, well perfused [place] in color LABORATORY DATA: Please see below. IMAGING: Portable chest x-ray, 11/15/2020 FINDINGS: Lungs: Slightly increased bibasilar infiltrate or atelectasis since the prior study. Pleural space: Question of minimal left pleural effusion. Heart/Mediastinum: Unremarkable. No cardiomegaly. Bones/joints: Unremarkable. Soft tissues: There are moderately generous overlying soft tissues. Other findings: Decreased inflation since the prior study. IMPRESSION: 1. Slightly increased bibasilar infiltrates or atelectasis since 11/13/2020. 2. Question of minimal left pleural effusion which may have been present on the prior study. CTA, 11/15/2020 IMPRESSION: 1. Mild scattered bilateral ground-glass pulmonary infiltrates with minimal fibro-atelectatic change which is greatest in the bases consistent with pneumonia. 2. Probable fatty infiltration of the liver. 3. Lobular low-attenuation area in the pancreatic neck which may reflect a complex cyst or collection of cysts although a poorly enhancing pancreatic solid nodule is not excluded measuring 19 x 20 x 14 mm. 4. Otherwise negative CTA chest. No pulmonary embolism is identified. PROGNOSIS: Good ACTIVITY: As tolerated DIET: Low cholesterol diet DISCHARGE INSTRUCTIONS & ITEMS TO FOLLOWUP ON OUTPATIENT: -Please follow-up with your primary care physician within 7 days -Take 875 mg augmentin twice a day for the next 4 days -Take 2 mg Dexamethasone daily for the next 4 days -Return to ED/seek immediate medical care should presenting symptoms return and/or worsen DISCHARGE CONDITION: Stable TIME SPENT ON DISCHARGE: 37 minutes Vital Signs/I&Os Vital Signs Date Time Temp Pulse Resp B/P (MAP) Pulse Ox O2 Delivery O2 Flow Rate FiO2 11/18/20 12:00 74 19 93 Room Air 11/18/20 08:00 98.0 153/90 (111) 11/17/20 08:00 1.0 I&O- Last 24 Hours up to 6 AM 11/18/20 05:59 Intake Total 855 ml Output Total 1475 ml Balance -620 ml Laboratory Data Labs 24H Laboratory Tests 2 11/17/20 23:58: Bedside Glucose (Misc Panel) 123H 11/18/20 06:39: Immature Granulocyte % (Auto) 0.5, Neutrophils (%) (Auto) 79.1H, Lymphocytes (%) (Auto) 10.3L, Monocytes (%) (Auto) 10.1H, Eosinophils (%) (Auto) 0.0, Basophils (%) (Auto) 0.0, Neutrophils # (Auto) 4.8, Lymphocytes # (Auto) 0.6L, Monocytes # (Auto) 0.6, Eosinophils # (Auto) 0.0, Basophils # (Auto) 0.0, Nucleated Red Blood Cells % (auto) 0.0, Erythrocyte Sedimentation Rate 13, Prothrombin Time 13.2, Prothromb Time International Ratio 0.98, Activated Partial Thromboplast Time 27.6, D-Dimer, Quantitative 770.54H, Anion Gap 8, Glomerular Filtration Rate > 60.0, Calcium Level 7.5L, Ferritin 800H, Total Bilirubin 0.5, Aspartate Amino Transf (AST/SGOT) 58H, Alanine Aminotransferase (ALT/SGPT) 80H, Alkaline Phosphatase 70, Lactate Dehydrogenase 379H, Total Creatine Kinase 181, Creatine Kinase MB 1.3, Creatine Kinase MB Relative Index 0.72, Troponin I 0.02, C- Reactive Protein, Quantitative 1.70H, Total Protein 5.4L, Albumin 2.6L, Albumin/Globulin Ratio 0.9 CBC/BMP Laboratory Tests 11/18/20 06:39 FSBS Laboratory Tests Test 11/17/20 23:58 Range/Units Bedside Glucose (Misc Panel) 123 80-115 MG/DL Microbiology Microbiology 11/17/20 Gram Stain - Final, Resulted 11/17/20 Sputum Culture, Resulted Pending 11/15/20 Blood Culture - Preliminary, Resulted No Growth after 72 hours. All specime... 11/15/20 Blood Culture - Preliminary, Resulted No Growth after 72 hours. All specime... Discharge Medications Scheduled Amoxicillin/Potassium Clav (Augmentin 875-125 Tablet) 1 Each Tablet, 875 MG PO BID Dexamethasone (Dexamethasone) 2 Mg Tablet, 2 MG PO DAILY Rosuvastatin Calcium (Rosuvastatin Calcium) 20 Mg Tablet, 20 MG PO DAILY, (Reported) HAS NOT STARTED MEDICATION YET. Scheduled PRN Acetaminophen (Acetaminophen) 500 Mg Tablet, 1,000 MG PO Q6H PRN for PAIN / FEVER, (Reported) Ondansetron (Ondansetron Odt) 4 Mg Tab.rapdis, 4 MG PO Q6-8HP PRN for NAUSEA OR VOMITING, (Reported) Phenylephrine/Dm/Acetaminop/GG (Tylenol Cold-Flu Severe [place]) 1 Each Tablet, 2 EACH PO Q4H PRN for FEVER AND CONGESTION, (Reported) Allergies Coded Allergies: No Known Allergies (Unverified , 11/13/20) ANUSHKA CINTRON D.O. Nov 18, 2020 20:06
[2020-11-20 18:07] LABS: HEPATITIS B CORE ANTIBODY IGG Negative (Negative); MYCOPLASMA PNEUMONIAE IgG 458 U/mL (0-99); MYCOPLASMA PNEUMONIAE IgM <770 U/mL (0-769)
== END 2020-11-18 15:20 | disposition home or self-care (01) | DRG 137 ==
LOC: M ED 18:42 → M ED INP 22:35 → ENRESERV 23:03 → M 4MAIN 11-16 00:59
PROVIDERS: ADMIT Internal Medicine; ATTEND Internal Medicine
DX: U07.1 COVID-19 (principal); D61.818 Other pancytopenia; K86.2 Cyst of pancreas; D69.6 Thrombocytopenia, unspecified; J12.89 Other viral pneumonia; Z87.891 Personal history of nicotine dependence; M54.5 Low back pain

== ENCOUNTER → 2020-11-25 | Outpatient (REF) | payer BC ==
[~2020-11-25] MED LIST changes: +ACET-683 PO; +AUGM875T28 PO; +DEXA2TA PO
[2020-11-25 17:37] LABS: BASO % 0.3 % (0.0-1.0); EOS # 0.1 10^3/uL (0.0-0.5); EOS % 0.9 % (0.0-3.0); HEMATOCRIT 47.8 % (42.0-52.0); HEMOGLOBIN 15.4 g/dl (13.5-17.5); LYMPH # 1.5 10^3/uL (1.5-5.0); LYMPH % 17.1 % (24.0-44.0); MEAN CORPUSCULAR HEMOGLOBIN 29.3 pg (27.0-33.0); MEAN CORPUSCULAR HGB CONC 32.2 g/dl (32.0-36.5); MEAN CORPUSCULAR VOLUME 90.9 fl (80.0-96.0); MONO # 0.9 10^3/uL (0.0-0.8); MONO % 9.9 % (0.0-5.0); NEUTROPHILS # 6.3 10^3/uL (1.5-8.5); NEUTROPHILS % 70.1 % (36.0-66.0); PLATELET COUNT, AUTOMATED 345 10^3/uL (150-450); RED BLOOD COUNT 5.26 10^6/uL (4.30-6.10)
[2020-11-25 18:08] LABS: ALBUMIN 3.4 GM/DL (3.2-5.2); ALT/SGPT 88 U/L (12-78); BILIRUBIN,TOTAL 0.7 MG/DL (0.2-1.0); BLOOD UREA NITROGEN 26 MG/DL (7-18); CALCIUM LEVEL 9.1 MG/DL (8.8-10.2); CARBON DIOXIDE LEVEL 29 MEQ/L (21-32); CHLORIDE LEVEL 110 MEQ/L (98-107); CREATININE FOR GFR 0.81 MG/DL (0.70-1.30); GLOMERULAR FILTRATION RATE > 60.0 (>49); GLUCOSE, FASTING 75 MG/DL (70-100); LIPASE 88 U/L (73-393); NT-PRO BNP 69 PG/ML (<125); POTASSIUM SERUM 4.8 MEQ/L (3.5-5.1); SODIUM LEVEL 144 MEQ/L (136-145); TOTAL PROTEIN 6.8 GM/DL (6.4-8.2)
[2020-11-25 18:40] LABS: CA19-9 TUMOR MARKER,CARBOHYDRA 9.7 U/ML (<35.0)
== END ==
LOC: M SFHCPLAZ 15:40
PROVIDERS: ATTEND Family Medicine
DX: U07.1 COVID-19 (principal); K86.2 Cyst of pancreas

== ENCOUNTER → 2020-12-10 | Outpatient (CLI) | payer BC ==
--- NOTE | 2020-12-10 09:15 | REP ---
INDICATION: CYSTIC MASS OF PANCREAS COMPARISON: None TECHNIQUE: Real time B-mode marx scale ultrasound examination using curved array transducer. FINDINGS: Pancreas is incompletely evaluated due to interposed bowel gas and a subtle 14 x 10 x 9 mm hypoechoic lesion in the pancreatic tail is incompletely evaluated. Liver demonstrates coarsened echotexture suggesting underlying hepatocellular disease. Gallbladder is normal and without gallstones, wall thickening, or pericholecystic fluid. No biliary ductal dilatation is appreciated and the common bile duct measures 4 mm diameter. Spleen is normal in appearance without focal lesion. Splenic index equals 447. The bilateral kidneys are normal in reniform shape without hydronephrosis. Right kidney measures 11.0 x 5.2 x 5.5 cm. Left kidney measures 12.1 x 6.1 x 6.2 cm. Abdominal aorta is incompletely evaluated due to interposed bowel gas. No ascites. IMPRESSION: 1. Incomplete evaluation to the pancreatic lesion due to interposed bowel gas. Consider pre and postcontrast CT or MRI of the abdomen for further investigation. 2. Underlying hepatocellular disease suspected. <Electronically signed by Gael DelR io > 12/10/20 [id number]
== END ==
LOC: M RAD 08:01
PROVIDERS: ATTEND Family Medicine
DX: K86.9 Disease of pancreas, unspecified (principal)

== ENCOUNTER → 2020-12-11 | Outpatient (CLI) | payer BC ==
[~2020-12-11] MED LIST changes: +PROHANCE 279.3MG/ML 15ML VIAL As Ordered ONE; +PROHANCE 279.3MG/ML 5ML VIAL As Ordered ONE
--- NOTE | 2020-12-11 15:05 | REP ---
INDICATION: CYST OF PANCREAS. COMPARISON: CT 11/15/2020. TECHNIQUE: Multiple sequences obtained in the axial coronal planes prior to and following the intravenous administration of 17 cc ProHance. FINDINGS: In the body of the pancreas again noted is a cystic structure with a maximum diameter of 2 cm. Internally there are multiple subcentimeter cystic components by thin septations. Multiple thin enhancing septations are seen on postcontrast images. There is no enhancing internal nodule. There is no pancreatic duct dilatation. No other pancreatic lesion is seen. The common bile duct is normal in caliber with no significant abnormality. The gallbladder appears unremarkable. There appears to be some degree of fatty infiltration of the liver, with a diffuse drop in signal within the liver on out of phase imaging. Subcentimeter cyst is seen in the upper pole the right kidney. No other abnormalities are seen in the visualized abdomen. There is no evidence of adenopathy or free fluid in the visualized abdomen. IMPRESSION: Cystic structure in the body of the pancreas has a maximum diameter of 2 cm. Internally there are multiple subcentimeter cystic components with thin enhancing septations. There is no internal enhancing nodule. There is no pancreatic duct dilatation. On heavily T2 weighted images there is likely communication with the pancreatic duct and therefore would represent an intraductal papillary mucinous neoplasm. Alternatively, if there is no communication with the pancreatic duct, it could represent a serous cystic neoplasm. Recommend follow-up MRI in 1 year. <Electronically signed by Cornell Lopez > 12/11/20 [id number]
== END ==
LOC: M RAD 12:26
PROVIDERS: ATTEND Family Medicine
DX: K86.2 Cyst of pancreas (principal)
CPT/HCPCS: 74183; A9576

== ENCOUNTER → 2020-12-17 | Outpatient (CLI) | payer BC ==
[~2020-12-17] MED LIST changes: -PROHANCE 279.3MG/ML 15ML VIAL As Ordered ONE; -PROHANCE 279.3MG/ML 5ML VIAL As Ordered ONE
--- NOTE | 2020-12-17 15:05 | REP ---
INDICATION: LEFT LEG PAIN. COMPARISON: None. TECHNIQUE: Left lower extremity duplex venous ultrasound. FINDINGS: The deep veins are anechoic and fully compressible from the groin to the popliteal fossa in the left lower extremity. Color flow imaging is homogeneous. Spectral Doppler interrogation demonstrates intact respiratory variation in flow and normal manual augmentation of flow. There is no evidence of deep vein thrombosis. IMPRESSION: Negative left lower extremity duplex venous ultrasound. No evidence of deep vein thrombosis. <Electronically signed by Rell Ojeda > 12/17/20 [id number]
== END ==
LOC: M RAD 14:09
PROVIDERS: ATTEND Physician Assistant
DX: M79.605 Pain in left leg (principal)

== ENCOUNTER → 2021-03-13 | Outpatient (REF) | payer BC ==
[2021-03-13 10:48] LABS: HEMOGLOBIN A1c 4.9 %
[2021-03-13 10:55] LABS: ALBUMIN 3.9 GM/DL (3.2-5.2); ALT/SGPT 50 U/L (12-78); BILIRUBIN,TOTAL 0.6 MG/DL (0.2-1.0); BLOOD UREA NITROGEN 18 MG/DL (7-18); CALCIUM LEVEL 9.2 MG/DL (8.8-10.2); CARBON DIOXIDE LEVEL 26 MEQ/L (21-32); CHLORIDE LEVEL 112 MEQ/L (98-107); CHOLESTEROL LEVEL 152 MG/DL (<200); CHOLESTEROL RISK RATIO 2.375 (<5); CPK CREATINE PHOSPHOKINASE 80 U/L (39-308); CREATININE FOR GFR 0.79 MG/DL (0.70-1.30); FREE T4 0.91 NG/DL (0.76-1.46); GLOMERULAR FILTRATION RATE > 60.0 (>49); GLUCOSE, FASTING 97 MG/DL (70-100); HDL CHOLESTEROL 64 MG/DL (>40); LDL CHOLESTEROL 71 MG/DL (<100); NON-HDL-C 88 MG/DL; SODIUM LEVEL 142 MEQ/L (136-145); TOTAL PROTEIN 6.6 GM/DL (6.4-8.2); TRIGLYCERIDES LEVEL 85 MG/DL (<150)
[2021-03-13 11:59] LABS: TOTAL 25(OH) VITAMIN D 28.3 NG/ML (30.0-100.0)
== END ==
LOC: M SFHCPLAZ 08:08
PROVIDERS: ATTEND Family Medicine
DX: E78.5 Hyperlipidemia, unspecified (principal); Z12.5 Encounter for screening for malignant neoplasm of prostate; K86.2 Cyst of pancreas; E55.9 Vitamin D deficiency, unspecified

== ENCOUNTER → 2022-03-11 | Outpatient (CLI) | payer BC ==
[~2022-03-11] MED LIST changes: +DOXY-443 PO; -DOXY100C37 PO
[2022-03-11 10:48] LABS: BASO % 0.5 % (0.0-1.0); EOS # 0.1 10^3/uL (0.0-0.5); HEMATOCRIT 48.8 % (42.0-52.0); HEMOGLOBIN 16.2 g/dl (13.5-17.5); LYMPH # 1.6 10^3/uL (1.5-5.0); MEAN CORPUSCULAR HEMOGLOBIN 29.6 pg (27.0-33.0); MEAN CORPUSCULAR HGB CONC 33.2 g/dl (32.0-36.5); MEAN CORPUSCULAR VOLUME 89.1 fl (80.0-96.0); MONO # 0.6 10^3/uL (0.0-0.8); MONO % 9.3 % (2.0-8.0); NEUTROPHILS # 3.7 10^3/uL (1.5-8.5); NEUTROPHILS % 61.9 % (36.0-66.0); PLATELET COUNT, AUTOMATED 188 10^3/uL (150-450); RED BLOOD COUNT 5.48 10^6/uL (4.30-6.10)
[2022-03-11 11:14] LABS: ALBUMIN 4.2 GM/DL (3.2-5.2); ALT/SGPT 46 U/L (12-78); BILIRUBIN,TOTAL 0.6 MG/DL (0.2-1.0); BLOOD UREA NITROGEN 23 MG/DL (7-18); CALCIUM LEVEL 9.5 MG/DL (8.8-10.2); CARBON DIOXIDE LEVEL 26 MEQ/L (21-32); CHLORIDE LEVEL 110 MEQ/L (98-107); CHOLESTEROL LEVEL 165 MG/DL (<200); CHOLESTEROL RISK RATIO 2.704 (<5); CREATININE FOR GFR 0.93 MG/DL (0.70-1.30); GLOMERULAR FILTRATION RATE > 60.0 (>49); GLUCOSE, FASTING 93 MG/DL (70-100); HDL CHOLESTEROL 61 MG/DL (>40); LDL CHOLESTEROL 89 MG/DL (<100); NON-HDL-C 104 MG/DL; POTASSIUM SERUM 4.5 MEQ/L (3.5-5.1); SODIUM LEVEL 143 MEQ/L (136-145); TRIGLYCERIDES LEVEL 73 MG/DL (<150)
[2022-03-11 11:21] LABS: PTH INTACT 38.2 PG/ML (18.5-88.0); TOTAL 25(OH) VITAMIN D 34.1 NG/ML (30.0-100.0)
[2022-03-11 11:50] LABS: CA19-9 TUMOR MARKER,CARBOHYDRA 18.5 U/ML (<35.0)
== END ==
LOC: M PLALAB 08:40
PROVIDERS: ATTEND Physician Assistant Medical
DX: E78.5 Hyperlipidemia, unspecified (principal); K21.9 Gastro-esophageal reflux disease without esophagitis; K86.2 Cyst of pancreas; E55.9 Vitamin D deficiency, unspecified

== ENCOUNTER 2023-05-09 16:25 | Emergency (ER) | payer BC, OTHER ==
[~2023-05-09] VITALS: Ht 177.8 cm; Wt 88.6 kg
[2023-05-09 16:25] VITALS: BP 137/76; TEMP 97.8
[~2023-05-09 16:25] MED LIST changes: -ROSU20TA5 PO; +ROSU20TA61 PO
[2023-05-09] MEDS ORDERED: NORCO, ANEXSIA 5/325MG TABLET (HYDROcodone/ACETAMINOPHEN) PO ONE (16:55)
[2023-05-09 17:02] VITALS: O2SAT 100
[2023-05-09] MEDS ORDERED: NORCO 5/325MG TABLET (HOME DOSE PACK) PO ONE (18:10)
[2023-05-09] MEDS ORDERED: HYDR-3713 PO (18:14)
== END 2023-05-09 18:40 | disposition home or self-care (01) ==
LOC: M ED 16:25
DX: S82.421A Displaced transverse fracture of shaft of right fibula, initial encounter for closed fracture (principal); W01.0XXA Fall on same level from slipping, tripping and stumbling without subsequent striking against object, initial encounter; K21.9 Gastro-esophageal reflux disease without esophagitis; E78.5 Hyperlipidemia, unspecified; K76.0 Fatty (change of) liver, not elsewhere classified; Z87.891 Personal history of nicotine dependence; Z79.2 Long term (current) use of antibiotics; Z79.83 Long term (current) use of bisphosphonates; Z79.899 Other long term (current) drug therapy

== ENCOUNTER → 2023-05-10 | Outpatient (CLI) | payer OTHER ==
[~2023-05-10] MED LIST changes: +HYDR-3713 PO
== END ==
LOC: M SOG 10:31
PROVIDERS: ATTEND Physician Assistant
DX: S82.431A Displaced oblique fracture of shaft of right fibula, initial encounter for closed fracture (principal)

== ENCOUNTER → 2023-05-17 | Outpatient (CLI) | payer OTHER | LOC: M SOG 11:00 | PROVIDERS: ATTEND Physician Assistant | DX: S82.61XA Displaced fracture of lateral malleolus of right fibula, initial encounter for closed fracture (principal); Z53.9 Procedure and treatment not carried out, unspecified reason ==

== ENCOUNTER → 2023-05-18 | Outpatient (CLI) | payer OTHER | LOC: M SOG 09:43 | PROVIDERS: ATTEND Orthopaedic Surgery Hand Surgery | DX: M79.89 Other specified soft tissue disorders (principal); S82.64XA Nondisplaced fracture of lateral malleolus of right fibula, initial encounter for closed fracture; X58.XXXA Exposure to other specified factors, initial encounter; Y92.9 Unspecified place or not applicable; Y93.9 Activity, unspecified; Y99.9 Unspecified external cause status ==

== ENCOUNTER → 2023-06-03 | Outpatient (CLI) | payer OTHER | LOC: M SOG 09:10 | PROVIDERS: ATTEND Physician Assistant | DX: S82.61XD Displaced fracture of lateral malleolus of right fibula, subsequent encounter for closed fracture with routine healing (principal) ==

== ENCOUNTER → 2023-08-02 | Outpatient (CLI) | payer OTHER | LOC: M SOG 08:00 | PROVIDERS: ATTEND Physician Assistant | DX: S82.61XD Displaced fracture of lateral malleolus of right fibula, subsequent encounter for closed fracture with routine healing (principal); Y93.9 Activity, unspecified; Y92.9 Unspecified place or not applicable ==